=== PATIENT | male | born 1970 | race Caucasian/White ===

== ENCOUNTER 2023-05-30 21:16 | Emergency (ER) | payer BC, SELFPAY ==
[2023-05-30 21:27] VITALS: BP 144/97; PULSE 114; RESP 16; TEMP 37.1; O2SAT 98; BMI 20.9
--- NOTE | 2023-05-30 22:42 | XRR_ITS ---
PROCEDURE INFORMATION: Exam: XR Right Finger(s) Exam date and time: 05/30/2023 10:46 PM Age: 52 years old Clinical indication: Injury or trauma; Other: Unknown; Injury details: Patient caught R. 3rd digit (middle finger) in conveyor belt at work TECHNIQUE: Imaging protocol: Radiologic exam of the right fingers. Views: Minimum 2 views. COMPARISON: No relevant prior studies available. FINDINGS: Bones/joints: There are comminuted fractures of the tip of the distal phalanx of the right middle finger, as well as the adjacent distal aspect, approximately 5 mm posterior to the tip. Soft tissues: There is overlying soft tissue swelling. XR/XR finger RT min 2V [id number] IMPRESSION: Comminuted fractures of the distal aspect/tip of the distal phalanx of the right middle finger with overlying soft tissue swelling as outlined.
[2023-05-30 22:59] LABS: Basophils # 0.1 10^3/uL (0.0-0.1); Basophils % 1.4 %; Hematocrit 42.7 % (37-53); Lymphocytes # 1.4 10^3/uL (0.8-4.8); Lymphocytes % 21.5 %; Mean Corpuscular HGB Conc 34.4 g/dL (30-55); Mean Corpuscular Hemoglobin 33.2 pg (27-33); Mean Corpuscular Volume 96.4 fl (82-101); Mean Platelet Volume 9.6 fL (7.4-10.4); Monocytes # 0.6 10^3/uL (0.2-0.9); Monocytes % 9.8 %; Neutrophils # 4.24 10^3/uL (1.8-7.7); Neutrophils % 66.8 %; Nucleated Red Blood Cells % 0 %; Platelet Count 158 10^3/cmm (157-399); Red Blood Count 4.43 10^6/uL (3.85-5.65); Red Cell Distribution Width 14.5 % (12.1-15.1); White Blood Count 6.34 10^3/uL (3.29-11.43)
[2023-05-30] MEDS: lactated ringers 1,000 ML 999 ML IV (23:12)
[2023-05-30 23:13] LABS: INR 0.83 (0.8-1.2)
[2023-05-30 23:21] LABS: Alanine Aminotransferase 25 U/L (0-41); Albumin Level 4.4 g/dL (3.5-5.2); Alcohol Level 150 mg/dL (0-10); Alkaline Phosphatase 114 U/L (40-130); Anion Gap 17.2 (5-19); Aspartate Amino Transferase 46 U/L (0-40); Blood Urea Nitrogen 7 mg/dL (6-20); Calcium 9.2 mg/dL (8.5-10.5); Carbon Dioxide 30 mmol/L (22-29); Chloride 96 mmol/L (98-107); Creatinine Clr Calc Pharmacy 123.1608; Globulin 3.3 g/dL (1.3-4.6); Glomerular Filtration Rate 140.4 mL/min (90-130); Glucose 120 mg/dL (65-115); Lipase 135 U/L (13-60); Osmolality Calculated 289 mOsm/kg (285-295); Potassium 3.2 mmol/L (3.5-5.1); Sodium 140 mmol/L (136-145); Total Bilirubin 0.5 mg/dL (0.15-1.2); Total Protein 7.7 g/dL (6.6-8.7)
--- NOTE | 2023-05-30 23:57 | CTR_ITS ---
PROCEDURE INFORMATION: Exam: CT Abdomen And Pelvis With Contrast Exam date and time: 05/31/2023 12:25 AM Age: 52 years old Clinical indication: Abdominal pain; Localized; Upper; Additional info: Epigastric pain TECHNIQUE: Imaging protocol: Computed tomography of the abdomen and pelvis with contrast. Radiation optimization: All CT scans at this facility use at least one of these dose optimization techniques: automated exposure control; mA and/or kV adjustment per patient size (includes targeted exams where dose is matched to clinical indication); or iterative reconstruction. Contrast material: OMNI 350; Contrast volume: 100 ml; Contrast route: INTRAVENOUS (IV); COMPARISON: No relevant prior studies available. RADIATION DOSE METRICS: Total DLP (mGy-cm): 322 FINDINGS: Liver: Geographic hypoattenuation and hypoenhancement of the left hepatic lobe and a major portion of the caudate lobe and portion of the right hepatic lobe, likely representing fatty steatosis. Suggestion of mild hepatomegaly. No mass. Gallbladder and bile ducts: Thickening of the gall bladder no wall. No calcified stones. No ductal dilation. Pancreas: No ductal dilation. Spleen: No splenomegaly. Adrenal glands: No mass. Kidneys and ureters: A tiny nonobstructing renal stone in the left kidney no occasionally calyx, measuring 3-4 mm. No hydronephrosis. Stomach and bowel: Thickening of the gastric donald can be seen in the setting of gastritis, in the appropriate clinical setting. Clinical correlation is recommended. Mild thickening of the duodenal and proximal jejunal donald could represent duodenoejunitis. Scattered small amount of fluid in the small bowel. Scattered colonic diverticula without CT evidence of acute diverticulitis. Mild wall thickening of the rectosigmoid Fecal material and gas is scattered in the colon. No obstruction. Appendix: Can not be well visualized. No evidence of appendicitis. Intraperitoneal space: No free air. No significant fluid collection. Vasculature: There are atherosclerotic calcifications of the abdominal aorta and its branches.. No abdominal aortic aneurysm. Lymph nodes: No enlarged lymph nodes by CT size criteria. Urinary bladder: Unremarkable as visualized. Reproductive: Unremarkable as visualized. Bones/joints: Mild degenerative changes of the lumbosacral spine. No acute fracture. Soft tissues: Unremarkable. CT/CT abdomen pelvis w con* [id number] IMPRESSION: 1. Fatty steatosis and mild hepatomegaly. 2. Thickening of the donald of the gallbladder can be seen in the setting of acalculous cholecystitis. 3. Thickening of the gastric, duodenal, and jejunal loops can be seen in gastroduodenitis and jejunitis, in the appropriate clinical setting. 4. Scattered colonic diverticulosis with associated thickening of the colonic donald which may represent mild colitis. No definite diverticulitis. 5. Nonobstructing 3 mm left lower caliceal stone. No hydronephrosis. 6. Mild degenerative changes of the SI joints and the lumbosacral spine.
[2023-05-31] MEDS: iohexol 350 mg/mL 500 mL Btl (per mL) IV (00:26)
[2023-05-31 00:47] LABS: Add Urine Microscopic? YES; Bilirubin Urine Neg (Negative); Blood Urine 2+ (Negative); Glucose Urine UA Norm (Normal); Ketones Urine 1+ (Negative); Leukocyte Esterase Urine Negative (Negative); Nitrate Urine Negative (Negative); Protein Urine Neg (Negative); Sulfosalicylic Acid Urine Negative (Negative); Urine Appearance Hazy (CLEAR); Urine Color Yellow (Yellow); Urobilinogen Urine Neg (Negative); pH Urine 8 (5-7)
[2023-05-31 00:48] LABS: Add Urine Culture? No; Amorphous Sediment Urine 3+ /hpf; Bacteria Urine 1+ /hpf; Mucus Urine 2+ /hpf; RBC Urine 0-4 /hpf (0-2)
[2023-05-31 00:51] LABS: Amphetamines Screen Urine Negative (Negative); Barbiturates Screen Urine Negative (Negative); Benzodiazepines Screen Urine Negative (Negative); Cocaine Screen Urine Negative (Negative); Opiate Screen Urine Negative (Negative); PCP Screen Urine Negative (Negative); THC Screen Urine Positive (Negative)
--- NOTE | 2023-05-31 01:25 | W.ED.ALCOHOL ---
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 Patient states that he is entering a detox program for alcohol on Saturday and states he is having the shakes and wanted to get something to help nini the symptoms of alcohol withdrawal. He states his last drink was earlier this evening and that he also smokes marijuana to help with the symptoms. He does endorse nausea without vomiting. He denies seizure activity. He denies chest pain or shortness of breath. Associated symptoms: Reports abdominal pain and nausea; Deny suicidal ideation or vomiting Review of Systems General: Reports: 10 or more systems reviewed and unremarkable except in HPI and below Card: Denies: chest pain or irregular heart rhythm Resp: Denies: dyspnea GI: Reports: abdominal pain and nausea; Denies: vomiting Psych: Denies: visual hallucinations, auditory hallucinations, suicidal ideation or homicidal ideation Physical Exam Narrative: EXAM NARRATIVE: Constitutional: the patient appears well nourished and with normal development. Vital signs reviewed as documented. Alert and oriented x 4, GCS 15 HENMT: Normocephalic, atraumatic. External ears normal appearance without drainage. Nose without drainage, normal appearance. Mucus membranes moist. Neck is supple, No jugular venous distension, trachea is midline, no appreciable carotid bruits. No lymphadenopathy. No meningeal signs. Flexion, extension and lateral rotation is without pain. Eyes: Pupils are equal, round, reactive to light and accommodation. No scleral icterus. Extra-ocular movement are intact. Thorax is symmetrical and with equal rise and fall with respirations. Resp: Lungs are clear to auscultation. No wheezes, rales, crackles or ronchi at present. Cardio: Regular rate and rhythm. Positive S1, S2. No appreciable murmurs, rubs or gallops. GI: Abdominal exam reveals normal bowel sounds to all quadrants. No organomegaly. No obvious palpable masses noted. No hepatomegally appreciated. Soft, non-tender to palpation. Extremity: Extremities are non-edematous and both femoral and pedal pulses are 2+ and equal bilaterally. Moves all extremities well, sensation in all extremities. Neuro: Alert and oriented x4, person, place, time and situation. Cranial nerves II through XII are grossly intact, there is no focal neurological deficits that I can appreciate at present. Sensation intact to all extremities. 2-point discrimination intact. Light touch intact to all extremities. Motor strength in the upper and lower extremities are equal and bilateral 5/5. Psych: Cooperative, calm, normal thought process, appropriate judgment. Skin: No lesions, rashes. No gross abnormalities noted. Back: Symmetrical, no obvious deformity, No CVA tenderness Course Vital Signs: Vital signs: Vital Signs Temperature 98.8 F 05/30/23 21:27 Pulse Rate 114 H 05/30/23 21:27 Respiratory Rate 16 05/30/23 21:27 Blood Pressure 144/97 05/30/23 21:27 Pulse Oximetry 98 05/30/23 21: Oxygen Delivery Me thod Room Air 05/30/23 21:27 MDM - Alcohol Medical Decision Making Physical exam completed and documented I will obtain CBC, CMP alcohol level, and a CT of his abdomen pelvis given his complaints of epigastric pain. Urinalysis and urine drug screen I will provide the patient p.o. Librium and Carafate for gastritis and withdrawal symptoms. Differential diagnosis to include alcoholic gastritis, withdrawal-alcohol Lab Data I reviewed the patient's lab results. 05/30/23 22:54 05/30/23 22:54 Radiology Impressions Finger X-Ray 05/30/23 22:42 IMPRESSION: Comminuted fractures of the distal aspect/tip of the distal phalanx of the right middle finger with overlying soft tissue swelling as outlined. Abdomen/Pelvis CT 05/30/23 23:57 IMPRESSION: 1. Fatty steatosis and mild hepatomegaly. 2. Thickening of the donald of the gallbladder can be seen in the setting of acalculous cholecystitis. 3. Thickening of the gastric, duodenal, and jejunal loops can be seen in gastroduodenitis and jejunitis, in the appropriate clinical setting. 4. Scattered colonic diverticulosis with associated thickening of the colonic donald which may represent mild colitis. No definite diverticulitis. 5. Nonobstructing 3 mm left lower caliceal stone. No hydronephrosis. 6. Mild degenerative changes of the SI joints and the lumbosacral spine. Laboratory Results WBC 6.34 10^3/uL (3.29-11.43) 05/30/23 22:54 RBC 4.43 10^6/uL (3.85-5.65) 05/30/23 22:54 Hgb 14.70 g/dL (11.27-16.99) 05/30/23 22:54 Hct 42.7 % (37-53) 05/30/23 22:54 MCV 96.4 fl (82-101) 05/30/23 22:54 MCH 33.2 pg (27-33) H 05/30/23 22:54 MCHC 34.4 g/dL (30-55) 05/30/23 22:54 RDW 14.5 % (12.1-15.1) 05/30/23 22:54 Plt Count 158 10^3/cmm (157-399) 05/30/23 22:54 MPV 9.6 fL (7.4-10.4) 05/30/23 22:54 Neut % (Auto) 66.8 % 05/30/23 22:54 Lymph % (Auto) 21.5 % 05/30/23 22:54 [place] % (Auto) 9.8 % 05/30/23 22:54 Eos % (Auto) 0.0 % 05/30/23 22:54 Baso % (Auto) 1.4 % 05/30/23 22:54 Neut # (Auto) 4.24 10^3/uL (1.8-7.7) 05/30/23 22:54 Lymph # (Auto) 1.4 10^3/uL (0.8-4.8) 05/30/23 22:54 [place] # (Auto) 0.6 10^3/uL (0.2-0.9) 05/30/23 22:54 Eos # (Auto) 0.0 10^3/uL (0.0-0.8) 05/30/23 22:54 Baso # (Auto) 0.1 10^3/uL (0.0-0.1) 05/30/23 22:54 Nucleated RBC % (auto) 0 % 05/30/23 22:54 Nucleated RBCs # 0.0 /100WBC 05/30/23 22:54 PT 11.70 SECONDS (12.1-14.9) L 05/30/23 22:54 INR 0.83 (0.8-1.2) 05/30/23 22:54 Sodium 140 mmol/L (136-145) 05/30/23 22:54 Potassium 3.2 mmol/L (3.5-5.1) L 05/30/23 22:54 Chloride 96 mmol/L (98-107) L 05/30/23 22:54 Carbon Dioxide 30 mmol/L (22-29) H 05/30/23 22:54 Anion Gap 17.2 (5-19) 05/30/23 22:54 BUN 7 mg/dL (6-20) 05/30/23 22:54 Creatinine 0.6 mg/dL (0.7-1.2) L 05/30/23 22:54 GFR Calculation 140.4 mL/min (90-130) H 05/30/23 22:54 Glucose 120 mg/dL (65-115) H 05/30/23 22:54 Calculated Osmolality 289 mOsm/kg (285-295) 05/30/23 22:54 Calcium 9.2 mg/dL (8.5-10.5) 05/30/23 22:54 Total Bilirubin 0.5 mg/dL (0.15-1.2) 05/30/23 22:54 AST 46 U/L (0-40) H 05/30/23 22:54 ALT 25 U/L (0-41) 05/30/23 22:54 Alkaline Phosphatase 114 U/L (40-130) 05/30/23 22:54 Total Protein 7.7 g/dL (6.6-8.7) 05/30/23 22:54 Albumin 4.4 g/dL (3.5-5.2) 05/30/23 22:54 Globulin 3.3 g/dL (1.3-4.6) 05/30/23 22:54 Lipase 135 U/L (13-60) H 05/30/23 22:54 Urine Color Yellow (Yellow) 05/31/23 00:38 Urine Appearance Hazy (CLEAR) A 05/31/23 00:38 Urine pH 8 (5-7) H 05/31/23 00:38 Ur Specific [place] 1.020 (1.005-1.030) 05/31/23 00:38 Urine Protein Neg (Negative) 05/31/23 00:38 Urine Glucose (UA) Norm (Normal) 05/31/23 00:38 Urine Ketones 1+ (Negative) H 05/31/23 00:38 Urine Blood 2+ (Negative) H 05/31/23 00:38 Urine Nitrate Negative (Negative) 05/31/23 00:38 Urine Bilirubin Neg (Negative) 05/31/23 00:38 Prot Sulfosalicylic Acd Negative (Negative) 05/31/23 00:38 Urine Urobilinogen Neg mg/dL (Negative) 05/31/23 00:38 Ur Leukocyte Esterase Negative (Negative) 05/31/23 00:38 Urine RBC 0-4 /hpf (0-2) H 05/31/23 00:38 Urine WBC None /hpf (0-5) 05/31/23 00:38 Ur Squamous Epith Cells None /hpf (0-5) 05/31/23 00:38 Amorphous Sediment 3+ /hpf 05/31/23 00:38 Urine Bacteria 1+ /hpf (NONE) H 05/31/23 00:38 Urine Mucus 2+ /hpf 05/31/23 00:38 Urine Opiates Screen Negative ng/mL (Negative) 05/31/23 00:38 Ur Barbiturates Screen Negative ng/mL (Negative) 05/31/23 00:38 Ur Phencyclidine Scrn Negative ng/mL (Negative) 05/31/23 00:38 Ur Amphetamines Screen Negative ng/mL (Negative) 05/31/23 00:38 U Benzodiazepines Scrn Negative ng/mL (Negative) 05/31/23 00:38 Urine Cocaine Screen Negative ng/mL (Negative) 05/31/23 00:38 U Marijuana (THC) Screen Positive ng/mL (Negative) H 05/31/23 00:38 Ethyl Alcohol 150 mg/dL (0-10) H 05/30/23 22:54 All radiology interpretation(s) finalized by discharge Discharge Plan Discharge Patient Disposition: Home Clinical Impression: Alcohol abuse Gastritis Qualifiers: Gastritis type: alcoholic Chronicity: acute Gastritis bleeding: without bleeding Qualified Code(s): K29.20 - Alcoholic gastritis without bleeding Condition: Stable Prescriptions: New Carafate 1 gram tablet 1 g PO TID 56 Days Qty: 168 0RF chlordiazepoxide HCl 25 mg capsule 25 mg PO Q6H Qty: 28 0RF Discharge Orders: Discharge ED (Routine); Ordered 05/31/23 Ordered By: Gagandeep Mosqueda Discharge Diet: Usual diet Discharge Activity: Resume usual activity Patient Instructions: Opioid Safety, Pain Management Coding Level of Care Code ED Machine Repairman for Олег Singletary
[2023-05-31] MEDS: chlordiazePOXIDE 25 mg Capsule 50 MG PO (02:03)
[2023-05-31] MEDS: sucralfate 1 gm Tablet PO (02:04)
== END 2023-05-31 02:06 | disposition home or self-care (01) ==
PROVIDERS: Emergency Provider Internal Medicine
DX: K29.20 Alcoholic gastritis without bleeding (principal); F10.10 Alcohol abuse, uncomplicated; Y90.6 Blood alcohol level of 120-199 mg/100 ml
CPT/HCPCS: 36415; 73140; 74177; 80053; 80306; 80307; 81001; 83690; 85025; 85610; 96360; 96361; 99285; J7120; Q9967

== ENCOUNTER 2023-10-09 10:18 | Emergency (ER) | payer BC, MEDICAID, SELFPAY ==
[2023-10-09 10:24] VITALS: BP 148/98; PULSE 105; RESP 18; TEMP 36.9; O2SAT 95
[2023-10-09 10:33] VITALS: BP 148/98; PULSE 99; RESP 18; O2SAT 98
--- NOTE | 2023-10-09 11:17 | ED_ITS ---
HPI - Wound/Laceration General: Chief Complaint: Wound/Laceration Stated Complaint: left eye lac Time Seen by Provider: 10/09/23 10:33 History of Present Illness: 52-year-old male presents emergency room last night he caught his eye on a tree branch while looking for a dog. It is mildly red and has not had any vision changes. He has some skin abrasions he is unsure of his last tetanus no direct puncture to the eye the injuries are to the area of the glabella and the left upper eyelid. No other injuries. Did not fall did not strike his head there is no loss conscious. Onset (ago): hour(s) Location: face (Left upper eyelid and forehead) Associated symptoms: Denies chills or fever(s) Review of Systems Const: Denies: fever(s) or chills Card: Denies: chest pain Resp: Denies: dyspnea GI: Denies: abdominal pain : Denies: dysuria, urinary frequency or urinary urgency Musc: Denies: neck pain or back pain Skin/Breast: Denies: rash Physical Exam Const: COMMON NORMALS: no acute distress GENERAL APPEARANCE: cooperative and comfortable ORIENTATION/CONSCIOUSNESS: Yes awake, Yes oriented to person, Yes oriented to place and Yes oriented to time HENMT: COMMON NORMALS: normocephalic, atraumatic and hearing grossly normal bilaterally HEAD & SCALP: normocephalic and atraumatic Eye: OTHER: Partial-thickness laceration through the superficial layer of the skin on the upper eyelid on the left there is a small nonbleeding nongaping puncture wound over the glabella palpation of the supraorbital ridge there is no fracture or dislocation there is some mild redness of the sclera visual testing to finger counting and reading print was equal bilaterally no definite visual deficits are noted on exam Resp: COMMON NORMALS: normal respiratory effort and No use of accessory muscles GI: PALPATION: Yes Tenderness to palpation present (GI) and Yes Guarding due to palpation present (GI) Extremity: COMMON NORMALS: normal to inspection, capillary refill normal, no clubbing, cyanosis or edema, no calf tenderness and no pedal edema Neuro: SENSORIUM/ORIENTATION: Yes oriented to person, Yes oriented to place and Yes oriented to time Skin: COMMON NORMALS: no rashes or lesions noted GENERAL SKIN EXAM: no rashes or lesions noted Course Vital Signs: Vital signs: Vital Signs Temperature 98.4 F 10/09/23 10:24 Pulse Rate 99 10/09/23 10:33 Respiratory Rate 18 10/09/23 10:33 Blood Pressure 148/98 10/09/23 10:33 Pulse Oximetry 98 10/09/23 10:33 Oxygen Delivery Me thod Room Air 10/09/23 10:33 MDM - Wound/Laceration Medical Decision Making Patient is nearly 12 hours out from the original injury as not a significant amount of benefit to suturing wounds at this point. Apply topical antibiotic ointment wash wounds daily. There is no evidence of corneal abrasion is some mild redness to the sclera but he has no pain or burning itching visual field te sting is normal. Will discharge patient home and follow-up as needed. Tetanus was updated. Medical Records I reviewed the patient's medical records. No radiology studies performed this visit Discharge Plan Discharge Patient Disposition: Home Clinical Impression: Laceration Condition: Stable Prescriptions: New mupirocin 2 % ointment 1 applic topical BID Qty: 15 0RF cephalexin 500 mg capsule 500 mg PO TID 5 Days Qty: 15 0RF No Action chlordiazepoxide HCl 25 mg capsule 25 mg PO Q6H Qty: 28 0RF Discharge Orders: Discharge ED (Routine); Ordered 10/09/23 Ordered By: Jairo Ziegler Discharge Diet: Usual diet Discharge Activity: Increase activity as tolerated Patient Instructions: Opioid Safety, Pain Management Activity Restrictions/Additional Instructions: Thank you for choosing [facility] for your healthcare needs today. It is very important that you follow up as instructed or that you return to the Emergency Department should you have concerns or if your condition changes or worsens in any way. You were seen for a laceration to the upper eyelid and to the glabella (forehead) apply topical antibiotic ointment twice a day to the wounds. The wounds will not particular benefit from suturing at this point. Also recommend he start oral antibiotics 1 pill 3 times a day for 5 days. Your vision was examined as well and was unaffected. If you notice difficulty with vision or other changes in symptoms return Coding Level of Care Code ED Library Page for Олег Singletary
== END 2023-10-09 12:00 | disposition home or self-care (01) ==
PROVIDERS: Emergency Provider Family Medicine
DX: S01.112A Laceration without foreign body of left eyelid and periocular area, initial encounter (principal); S01.83XA Puncture wound without foreign body of other part of head, initial encounter; W22.8XXA Striking against or struck by other objects, initial encounter
CPT/HCPCS: 99283